=== PATIENT | male | born 1975 | race Caucasian/White ===

== ENCOUNTER 2018-09-15 11:43 | Emergency (ER) | payer SELFPAY ==
[~2018-09-15] VITALS: Ht 167.6 cm; Wt 104.3 kg
[2018-09-15 12:09] VITALS: Ht 167.6 cm; Wt 104.3 kg
[2018-09-15] MEDS ORDERED: LIDOCAINE 1%/EPI 30 ML INJ INJ STA (12:33)
[2018-09-15] MEDS ORDERED: ACETAMINOPHEN 325 MG TAB PO ONE (13:00)
[2018-09-15] MEDS ORDERED: ACET500C5 PO (14:53)
[2018-09-15 14:59] VITALS: BP 128/67; PULSE 61; RESP 16
--- NOTE | 2018-09-18 23:14 | ERD ---
ER Documentation Chief Complaint Chief Complaint laceration to forehead hit with pipe HPI 43-year-old male patient with no significant past medical history presents ED complaining of accidentally hitting his head with a pipe at work. States that he did lose consciousness. Reports that he had a laceration on the right side of his head. Denies any fever, chills, dizziness, vomiting, chest pain, shortness of breath. ROS All systems reviewed and are negative except as per history of present illness. Medications Home Meds Active Scripts Acetaminophen* (Tylophen*) 500 Mg Capsule, 1 CAP PO Q6H PRN for PAIN AND OR ELEVATED TEMP, #20 CAP Prov:DUJOCE Cassidy PA-C 09/15/18 PMhx/Soc Medical and Surgical Hx: pt denies Medical Hx, pt denies Surgical Hx Hx Alcohol Use: Yes Hx Tobacco Use: Yes Smoking Status: Current every day smoker FmHx Family History: No diabetes, No coronary disease Physical Exam Vitals Vital Signs Date Temp Pulse Resp B/P (MAP) Pulse Ox O2 O2 Flow FiO2 Time Delivery Rate 09/15/18 97.8 61 16 128/67 98 Room Air 14:59 (87) 09/15/18 98.1 64 18 132/83 97 12:09 (99) Physical Exam Const: [id number], well-nourished. In no acute distress. Head: Atraumatic, normocephalic. Centimeter laceration noted on the right temporal region, superficial and linear. No hematoma. No prakash sign. No raccoon eyes. Eyes: Normal Conjunctiva without injection. No purulent discharge. PERRLA. EOMI ENT: Normal external ear. Ear canal without erythema. Tympanic membrane pearly rudd without effusion or bulging. No hemotympanum. Nasal canal clear with normal turbinates. Moist oropharynx without tonsillar exudates. Non-erythematous pharynx. Uvula midline. No drooling. No trismus. Neck: No cervical midline tenderness. Full range of motion. No meningismus. No cervical lymphadenopathy. No JVD. Resp: Clear to auscultation bilaterally. No wheezing, rhonchi, rales, or crackles. No accessory muscle use. No retractions. Cardio: Regular rate and rhythm. No murmurs, rubs or gallops. Abd: Soft, non tender, non distended. Normal bowel sounds. No palpable masses. No rebound tenderness. No guarding. Negative McBurney's Point. Negative Mayo's Sign. Skin: Normal skin turgor. No petechiae or rashes Back: No midline tenderness. No CVA tenderness. Ext: No cyanosis, or edema. Distal pulses intact bilaterally. Neur: Awake and alert. Normal gait. Normal coordination. Cranial Nerves II- VII intact. Normal finger to nose. Muscle strength 5/5. Sensation intact. Psych: Normal Mood and Affect Results 24 hrs Current Medications Medications Dose Sig/Gill Start Time Status Last (Trade) Ordered Route PRN Stop Time Admin Dose Reason Admin 650 mg ONCE ONCE 09/15/18 DC 09/15/18 Acetaminophen PO 13:00 12:44 (Tylenol 09/15/18 13:01 Tab) Lidocaine/ 30 ml ONCE STAT 09/15/18 DC Epinephrine INJ 12:33 (Xylocaine 09/15/18 12:38 1%/ Epi (Pf)) Procedures/MDM 15-year-old male patient with no significant past medical history presents ED complaining of a laceration to his forehead as he was hit with a heavy pipe at work. Patient is afebrile and nontoxic-appearing. A CT of the brain without contrast was ordered to further evaluate patient. Patient gave consent to perform laceration repair. Laceration Repair by me: Anesthesia: 5cc 1% lidocaine locally Location: Right temporal region Tendon/Joint/Nerves: No injury Foreign body: None detected after copious irrigation and exploration Technique: 12 6-0 Prolene Simple Interrupted Sutures Complexity: No subcutaneous sutures/mucosal repair/edge excision Post Closure Length: [10] cm IMPRESSION: 1. No evidence of acute intracranial pathology. 2. Mild right frontal and occipital scalp swelling. Patient's bleeding was easily controlled in the department and there is no indication of anemia. Low suspicion for intracranial bleed, subarachnoid hemorrhage, meningitis, TIA, stroke, subdural hematoma, epidural hematoma, or other emergent conditions. 48 hour wound check. Scar minimization instructions given. Instructed patient to return for suture removal in 7-10 days. Instructed patient to return to the ED sooner for any worsening symptoms. Follow up with primary care physician in 1-2 days. Patient's questions were answered. Patient understood and agreed with discharge plan. Departure Diagnosis: Primary Impression: Forehead laceration Encounter type: initial encounter Qualified Codes: S01.81XA - Laceration without foreign body of other part of head, initial encounter Additional Impression: Head injury Encounter type: initial encounter Qualified Codes: S09.90XA - Unspecified injury of head, initial encounter Condition: Stable Patient Instructions: HEAD INJURY, No Wake-Up (Adult), Laceration, Face (Suture Or Tape) Referrals: [facility] YOU HAVE RECEIVED A MEDICAL SCREENING EXAM AND THE RESULTS INDICATE THAT YOU DO NOT HAVE A CONDITION THAT REQUIRES URGENT TREATMENT IN THE EMERGENCY DEPARTMENT. FURTHER EVALUATION AND TREATMENT OF YOUR CONDITION CAN WAIT UNTIL YOU ARE SEEN IN YOUR DOCTORS OFFICE WITHIN THE NEXT 1-2 DAYS. IT IS YOUR RESPONSIBILITY TO MAKE AN APPOINTMENT FOR FOLOW-UP CARE. IF YOU HAVE A PRIMARY DOCTOR --you should call your primary doctor and schedule an appointment IF YOU DO NOT HAVE A PRIMARY DOCTOR YOU CAN CALL OUR PHYSICIAN REFERRAL HOTLINE AT IF YOU CAN NOT AFFORD TO SEE A PHYSICIAN YOU CAN CHOSE FROM THE FOLLOWING [facility] [address] [facility] [address] [employer] [facility] [facility] [address] [facility] [address] [facility] [address] [facility]. [facility]. [address] [facility]. [facility] YOU HAVE RECEIVED A MEDICAL SCREENING EXAM AND THE RESULTS INDICATE THAT YOU DO NOT HAVE A CONDITION THAT REQUIRES URGENT TREATMENT IN THE EMERGENCY DEPARTMENT. FURTHER EVALUATION AND TREATMENT OF YOUR CONDITION CAN WAIT UNTIL YOU ARE SEEN IN YOUR DOCTORS OFFICE WITHIN THE NEXT 1-2 DAYS. IT IS YOUR RESPONSIBILITY TO MAKE AN APPOINTMENT FOR FOLOW-UP CARE. IF YOU HAVE A PRIMARY DOCTOR --you should call your primary doctor and schedule and appointment IF YOU DO NOT HAVE A PRIMARY DOCTOR YOU CAN CALL OUR PHYSICIAN REFERRAL HOTLINE AT . IF YOU CAN NOT AFFORD TO SEE A PHYSICIAN YOU CAN CHOSE FROM THE FOLLOWING [facility] INSTIT[facility]IONS: [facility] [address] [place] [address] [facility] [address] [place] [address] [facility] [address] [place] [address] [facility] URGENT C[facility]/SPECIALTIES Additional Instructions: Llame al doctor MAANA y caitlyn beverly TC PARA DENTRO DE 2-3 PIEDRA.Dgale a la secretaria que nosotros le instruimos hacer esta tc.Avise o llame si roa condicin se empeora antes de la tc. Regresa aqui si peor o no mejor. WOUND CHECK:CONSULTE A ROA MDICO EN 2 rincon [address] HERIDA. SUTURE REMOVAL:CONSULTE A ROA MDICO PARA SACAR ROA PUNTOS.PARA LA VERONICA 5-6 rincon.EN OTRO LUGAR 7-10 rincon. JOCE DU PA-C Sep 18, 2018 23:14
== END 2018-09-15 15:06 | disposition home or self-care (01) ==
LOC: FTE 11:43
DX: S01.81XA Laceration without foreign body of other part of head, initial encounter (principal); S09.90XA Unspecified injury of head, initial encounter; F17.210 Nicotine dependence, cigarettes, uncomplicated; W22.8XXA Striking against or struck by other objects, initial encounter; Y92.89 Other specified places as the place of occurrence of the external cause
CPT/HCPCS: 70450